=== PATIENT | female | born 1965 | race African-American/Black ===

== ENCOUNTER 2017-02-18 05:34 | Inpatient (IN) | payer OTHER ==
[2017-02-18] VITALS (11 sets, daily range): BP systolic 104–165; BP diastolic 63–115
[~2017-02-18] VITALS: Ht 152.4 cm; Wt 49.3 kg
[2017-02-18 06:16] LABS: CHLORIDE 102 mEq/L (99-109); POTASSIUM 3.6 mEq/L (3.7-5.4); SODIUM 133 mEq/L (136-147)
[2017-02-18 06:17] LABS: MAGNESIUM 1.3 mg/dL (1.3-2.7)
[2017-02-18 06:18] LABS: GLUCOSE 113 mg/dL (70-99)
[2017-02-18 06:20] LABS: ANION GAP 4 MEQ/L (2-14)
[2017-02-18 06:23] LABS: UREA NITROGEN (BUN) 8 mg/dL (9-23)
[2017-02-18 06:25] LABS: CREATINE KINASE 230 IU/L (1-294); TOTAL CK 230 IU/L (1-294)
[2017-02-18 06:28] LABS: GFR ESTIMATE (CALCULATED) > 59 mL/min/
[2017-02-18 06:30] LABS: CK-MB 4.3 ng/mL (0.0-4.9)
[2017-02-18] MEDS ORDERED: PRINIVIL10 MG PO (06:40)
[2017-02-18 06:50] LABS: SERUM ETHYL ALCOHOL < 10 mg/dL
[2017-02-18 07:14] LABS: ADD MIUA? YES; BILIRUBIN NEGATIVE; BLOOD NEGATIVE; COLOR STRAW ((YELLOW)); GLUCOSE (STRIP) 50; KETONES NEGATIVE; LEUKOCYTES TRACE; NITRITE NEGATIVE; PROTEIN (STRIP) NEGATIVE; SPECIFIC GRAVITY 1.012 (1.000-1.030); UROBILINOGEN 0.2 MG/DL (0.2-1.0)
[2017-02-18 07:16] LABS: BACTERIA NONE SEEN /HPF; EPITHELIAL CELLS RARE /HPF; MUCUS TRACE /LPF; RED BLOOD CELLS 0-5 /HPF (0-5); WHITE BLOOD CELLS 0-5 /HPF (0-5)
[2017-02-18 07:40] LABS: ADD MEDTOX COMMENT Y; AMPHETAMINE NEGATIVE (500 ng/mL); BARBITURATES NEGATIVE (200 ng/mL); BENZODIAZEPINES NEGATIVE (150 ng/mL); COCAINE PRESUMPTIVE POSITIVE (150 ng/mL); INTERNAL CONTROLS VALID? YES; METHADONE NEGATIVE (200 ng/mL); METHAMPHETAMINE NEGATIVE (500 ng/mL); OPIATES (MORPHINE) PRESUMPTIVE POSITIVE (100 ng/mL); OXYCODONE NEGATIVE (100 ng/mL); PHENCYCLIDINE NEGATIVE (25 ng/mL); PROPOXYPHENE NEGATIVE (300 ng/mL); THC CANNABINOIDS NEGATIVE (50 ng/mL); TRICYCLIC ANTIDEPRESSANTS PRESUMPTIVE POSITIVE (300 ng/mL)
[2017-02-18 09:11] LABS: TROP-I INTERPRETATION NEGATIVE; TROPONIN-I 0.02 ng/mL (0.0-0.30)
[2017-02-18 11:25] LABS: POINT-OF-CARE METER ID UU13113747
[2017-02-18 11:54] LABS: EOSINOPHIL (%) 0.7 % (0-5); HEMATOCRIT 37.5 % (36.0-46.0); INSTRUMENT ABS NEUTROPHIL CT 2.4 K/uL; LYMPHOCYTE COUNT 1.4 K/uL (1.0-2.8); MCH 32.7 PG (29.0-34.0); MCHC 33.9 G/DL (30.0-36.0); MCV 96.6 FL (83-99); MEAN PLAT.VOLUME 9.6 uM^3 (9.5-12.4); MONOCYTE (%) 9.8 % (3-12); MONOCYTE COUNT 0.4 K/uL (0-0.8); NEUTROPHIL (%) 55.4 % (45-76); NEUTROPHIL COUNT 2.4 K/uL (1.8-6.4); PLATELET COUNT 278 K/uL (156-360); RBC DIS.WIDTH-CV 12.7 % (11.8-14.6); RBC DIS.WIDTH-SD 45.5 % (39-53); RED BLOOD COUNT 3.88 M/uL (3.80-5.20); WHITE BLOOD COUNT 4.3 K/uL (4.1-10.2)
[2017-02-18 13:33] LABS: BASE EXCESS 3.6 mEq/L (-3 to +3); BICARBONATE 26.3 mEq/L (22-26); COMMENTS - BLOOD GASES C+; DEVICE VENT; FI02 35 %; MECHANICAL RATE 14 resp/min; METHEMOGLOBIN 1.1 % (0-1.5); MODE AC; PCO2 33 mm Hg (35-45); PEEP 5 CM/H20; PO2 137 mm Hg (80-100); SITE RB; TIDAL VOLUME 400 ML; TOTAL RESP RATE 29 resp/min; pH 7.51 (7.35-7.45)
[2017-02-18 16:20] LABS: METH RESISTANT S AUREUS PCR NEGATIVE (NEGATIVE)
[2017-02-18 16:20] LABS: EOSINOPHIL (%) 0 % (0-5); HEMATOCRIT 35.7 % (36.0-46.0); IMMATURE GRANULOCYTE (%) 0.3 % (0.0-0.7); INSTRUMENT ABS NEUTROPHIL CT 3.7 K/uL; LYMPHOCYTE COUNT 1.5 K/uL (1.0-2.8); MCH 33.1 PG (29.0-34.0); MCHC 35.3 G/DL (30.0-36.0); MCV 93.7 FL (83-99); MEAN PLAT.VOLUME 9.1 uM^3 (9.5-12.4); MONOCYTE (%) 10.1 % (3-12); MONOCYTE COUNT 0.6 K/uL (0-0.8); NEUTROPHIL (%) 63.8 % (45-76); NEUTROPHIL COUNT 3.7 K/uL (1.8-6.4); PLATELET COUNT 289 K/uL (156-360); RBC DIS.WIDTH-CV 12.5 % (11.8-14.6); RBC DIS.WIDTH-SD 42.7 % (39-53); RED BLOOD COUNT 3.81 M/uL (3.80-5.20); WHITE BLOOD COUNT 5.8 K/uL (4.1-10.2)
[2017-02-18 16:22] LABS: PROBE CHECK PASS; SPECIMEN PROCESSING CONTROL PASS
[2017-02-19] VITALS (26 sets, daily range): BP systolic 71–188; BP diastolic 41–125
[2017-02-19 05:14] LABS: HEMATOCRIT 37.7 % (36.0-46.0); MCH 32.3 PG (29.0-34.0); MCHC 34.5 G/DL (30.0-36.0); MCV 93.8 FL (83-99); PLATELET COUNT 299 K/uL (156-360); RBC DIS.WIDTH-CV 12.6 % (11.8-14.6); RBC DIS.WIDTH-SD 43.7 % (39-53); RED BLOOD COUNT 4.02 M/uL (3.80-5.20); WHITE BLOOD COUNT 6.6 K/uL (4.1-10.2)
[2017-02-19 05:38] LABS: ANION GAP 8 MEQ/L (2-14); CHLORIDE 99 MEQ/L (99-109); GFR ESTIMATE (CALCULATED) > 59 mL/min/; GLUCOSE 115 mg/dL (70-99); MAGNESIUM 1.5 mg/dl (1.3-2.7); POTASSIUM 3.4 MEQ/L (3.7-5.4); SAMPLE HEMOLYSIS CHECK 0; SAMPLE ICTERIC CHECK 0; SAMPLE LIPEMIA CHECK 0; SODIUM 132 MEQ/L (136-147); UREA NITROGEN (BUN) 9 mg/dL (9-23)
[2017-02-20] VITALS (25 sets, daily range): BP systolic 132–199; BP diastolic 76–116
[2017-02-20 05:25] LABS: ANION GAP 9 MEQ/L (2-14); CHLORIDE 106 MEQ/L (99-109); GFR ESTIMATE (CALCULATED) > 59 mL/min/; GLUCOSE 120 mg/dL (70-99); MAGNESIUM 1.6 mg/dl (1.3-2.7); POTASSIUM 3.5 MEQ/L (3.7-5.4); SAMPLE HEMOLYSIS CHECK 0; SAMPLE ICTERIC CHECK 0; SAMPLE LIPEMIA CHECK 0; SODIUM 137 MEQ/L (136-147); UREA NITROGEN (BUN) 10 mg/dL (9-23)
[2017-02-21] VITALS (23 sets, daily range): BP systolic 128–204; BP diastolic 74–122
[2017-02-21 09:43] LABS: HIV RNA QUANT LOG10 RESULT 4.79 Log(10) (<1.30)
[2017-02-21] MEDS ORDERED: ZESTORETIC 20-1 EAC1 PO (09:59)
[2017-02-22] VITALS (9 sets, daily range): BP systolic 134–151; BP diastolic 79–92
[2017-02-22 05:24] LABS: EOSINOPHIL (%) 0.3 % (0-5); HEMATOCRIT 37.3 % (36.0-46.0); IMMATURE GRANULOCYTE (%) 0.4 % (0.0-0.7); INSTRUMENT ABS NEUTROPHIL CT 6.3 K/uL; LYMPHOCYTE COUNT 2.8 K/uL (1.0-2.8); MCH 32.7 PG (29.0-34.0); MCHC 35.1 G/DL (30.0-36.0); MEAN PLAT.VOLUME 9.1 uM^3 (9.5-12.4); MONOCYTE (%) 8.4 % (3-12); MONOCYTE COUNT 0.9 K/uL (0-0.8); NEUTROPHIL (%) 62.9 % (45-76); NEUTROPHIL COUNT 6.3 K/uL (1.8-6.4); PLATELET COUNT 341 K/uL (156-360); RBC DIS.WIDTH-CV 12.7 % (11.8-14.6); RBC DIS.WIDTH-SD 43.4 % (39-53); RED BLOOD COUNT 4.01 M/uL (3.80-5.20); WHITE BLOOD COUNT 10.1 K/uL (4.1-10.2)
[2017-02-22 05:52] LABS: ANION GAP 7 MEQ/L (2-14); CHLORIDE 103 MEQ/L (99-109); GFR ESTIMATE (CALCULATED) > 59 mL/min/; GLUCOSE 103 mg/dL (70-99); POTASSIUM 3.5 MEQ/L (3.7-5.4); SAMPLE HEMOLYSIS CHECK 0; SAMPLE ICTERIC CHECK 0; SAMPLE LIPEMIA CHECK 0; SODIUM 133 MEQ/L (136-147); UREA NITROGEN (BUN) 13 mg/dL (9-23)
[2017-02-22] MEDS ORDERED: ZESTORETIC 20-1 EAC1 PO (09:22)
== END 2017-02-22 09:33 | disposition home or self-care (01) | DRG 305 ==
LOC: EDBD 05:34 → EME 05:34 → EDOF 09:59 → 4WEST 09:59 → ENRESERV 10:01 → CANRESERV 10:49 → ENRESERV 11:06 → CANRESERV 11:06 → ENRESERV 11:19 → EDOF 13:28 → 4WEST 13:57
PROVIDERS: Emergency Medicine; Internal Medicine; Internal Medicine Critical Care Medicine; Specialist
PROC: 5A1935Z Respiratory Ventilation, Less than 24 Consecutive Hours (ICD-10-PCS; principal; 2017-02-18)
PROC: 0BH17EZ Insertion of Endotracheal Airway into Trachea, Via Natural or Artificial Opening (ICD-10-PCS; principal; 2017-02-18)
DX: I16.0 Hypertensive urgency (principal); T40.1X2A Poisoning by heroin, intentional self-harm, initial encounter; Y92.9 Unspecified place or not applicable; I42.1 Obstructive hypertrophic cardiomyopathy; F19.939 Other psychoactive substance use, unspecified with withdrawal, unspecified; M79.652 Pain in left thigh; Z21 Asymptomatic human immunodeficiency virus [HIV] infection status; F17.200 Nicotine dependence, unspecified, uncomplicated; R64 Cachexia; F19.239 Other psychoactive substance dependence with withdrawal, unspecified; R45.1 Restlessness and agitation; I95.9 Hypotension, unspecified; T50.901A Poisoning by unspecified drugs, medicaments and biological substances, accidental (unintentional), initial encounter; E83.42 Hypomagnesemia; E87.6 Hypokalemia; Z88.0 Allergy status to penicillin; Z68.21 Body mass index [BMI] 21.0-21.9, adult; F19.931 Other psychoactive substance use, unspecified with withdrawal delirium; E87.3 Alkalosis; E87.1 Hypo-osmolality and hyponatremia
CPT/HCPCS: 36600; 70450; 71010; 73552; 80048; 81003; 82533 91; 82550; 82553; 82803; 82948; 83735; 84100; 84439; 84443; 84484; 84702; 84999; 85025; 85025 91; 85027; 87070; 87205; 87536; 87641; 90686; 93005; 93306; 93970; 94002; 94003; 94760; 99281; 99285; G0480; J0360; J1630; J1650; J2060; J2250; J2704; J3010; J7050